=== PATIENT | male | born 1980 | race Caucasian/White ===

== ENCOUNTER 2017-06-10 13:18 | Emergency (ER) | payer OTHER ==
[2017-06-10 13:26] VITALS: BP 101/59; PULSE 72; RESP 16; TEMP 99; O2SAT 96
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
== END 2017-06-10 14:05 | disposition home or self-care (01) ==
DX: S80.211A Abrasion, right knee, initial encounter (principal); J45.909 Unspecified asthma, uncomplicated; V18.0XXA Pedal cycle driver injured in noncollision transport accident in nontraffic accident, initial encounter